=== PATIENT | male | born 1955 | race Caucasian/White ===

== ENCOUNTER 2017-11-24 13:23 | Emergency (ER) | payer OTHER ==
[2017-11-24] MEDS ORDERED: Lidocaine 1% with EPINEPHrine 1:100,000 20 ML MDV INJECT ONE (14:12)
--- NOTE | 2017-11-24 14:13 | EDM.PDOC ---
ED HPI GENERAL MEDICAL PROBLEM - General Chief Complaint: Lower Extremity Injury/Pain Stated Complaint: FLUID BUILDUP ON BOTH KNEES Time Seen by Provider: 11/24/17 13:39 Source of Information: Reports: Patient History Limitations: Reports: No Limitations - History of Present Illness INITIAL COMMENTS - FREE TEXT/NARRATIVE: The patient is a 61-year-old male with unknown history of bilateral knee arthritis which she states is severe, awaiting knee replacement, who presents with bilateral knee swelling. He works as a drywall mechanic and is fairly active and also has to be on his knees a fair amount at work. Over the past couple of days he's had worsening swelling and fluid collection on both knees. These are also more painful than usual. He takes "anti-inflammatory" medication at home which is helpful and also occasional tramadol. He is able to ambulate but it has significant pain with this. No new injury. Bilateral Knee Pain Score (Numeric/FACES): 4 - Related Data Allergies Allergy/AdvReac Type Severity Reaction Status Date / Time No Known Allergies Allergy Verified 11/24/17 13:33 Home Meds: Home Meds Aspirin 81 mg PO DAILY 11/24/17 [History] Fish Oil/Forrest-3 Fatty Acids [Fish Oil 1,000 MG] 1 each PO DAILY 11/24/17 [ History] Gabapentin [Neurontin] 300 mg PO TID 11/24/17 [History] Gluc 2KCl/Chondr/Melinda Hy/Hy Ac [Glucosamine & Chondroitin Cap] 1 cap PO DAILY [History] Lisinopril 20 mg PO DAILY 11/24/17 [History] Magnesium 250 mg PO DAILY 11/24/17 [History] Meloxicam 15 mg PO DAILY 11/24/17 [History] Metoprolol Succinate [Toprol Xl] 50 mg PO DAILY 11/24/17 [History] Multivitamin. 1 tab PO DAILY 11/24/17 [History] Sildenafil. 0.5 tab PO ASDIRECTED 11/24/17 [History] Past Medical History Cardiovascular History: Reports: Hypertension Musculoskeletal History: Reports: Osteoarthritis Neurological History: Reports: Other (See Below) Other Neuro History: pinched neve in spine Social & Family History - Tobacco Use Smoking Status *Q: Former Smoker Used Tobacco, but Quit: No - Recreational Drug Use Recreational Drug Use: No Review of Systems - Review of Systems Review Of Systems: See Below Constitutional: Denies: Fever Respiratory: Reports: No Symptoms Cardiovascular: Reports: No Symptoms GI/Abdominal: Reports: No Symptoms Musculoskeletal: Reports: Joint Pain, Joint Swelling Skin: Denies: Erythema, Wound ED EXAM, GENERAL - Physical Exam Exam: See Below Exam Limited By: No Limitations General Appearance: Alert, WD/WN, No Apparent Distress Eye Exam: Bilateral Eye: Normal Inspection Ears: Normal External Exam Nose: Normal Inspection, Normal Mucosa, No Blood Throat/Mouth: Normal Inspection, Normal Oropharynx, Normal Voice, No Airway Compromise Head: Atraumatic, Normocephalic Neck: Normal Inspection, Supple Respiratory/Chest: No Respiratory Distress Extremities: Other (Left knee: Effusion is present. Skin normal. No warmth or erythema. Full range of motion. Diffuse mild tenderness about the knee. Right knee: Effusion is present. Skin normal. No warmth or erythema. Full range of motion. Diffuse mild tenderness about the knee.) ED JOINT ASPIRATION PROCEDURE - Joint Apsiration/Arthrocentesis Site: L knee and R knee Skin prep: Chlorhexidine (Hibiciens) Local anesthesia: Lidocaine: 1% with EPI Local Anesthetic Volume: 2cc, Other (to each knee ) Aspiration needle size: other (22g) Aspirate appearance: serous Aspirate amount in cc's: 70 (70 from L, 50 from R ) Complications: No Course - Vital Signs Last Recorded V/S: Last Vital Signs Temp 37.0 C 11/24/17 13:33 Pulse 61 11/24/17 13:33 Resp 16 11/24/17 13:33 BP Pulse Ox 99 11/24/17 13:33 - Orders/Labs/Meds Orders: Active Orders 24 hr Category Date Time Status CELL COUNT,BODY FLUID [BF] Stat Lab 11/24/17 15:10 Results CELL COUNT,BODY FLUID [BF] Stat Lab 11/24/17 15:10 Results CRYSTALS,BODY FLUID [BF] Stat Lab 11/24/17 15:10 Results CRYSTALS,BODY FLUID [BF] Stat Lab 11/24/17 15:10 Results CULTURE BODY FLUID + SMEAR [RM] Stat Lab 11/24/17 15:03 Ordered CULTURE BODY FLUID + SMEAR [RM] Stat Lab 11/24/17 15:06 Ordered GLUCOSE,BODY FLUID [BF] Stat Lab 11/24/17 15:10 Results GLUCOSE,BODY FLUID [BF] Stat Lab 11/24/17 15:10 Results PROTEIN,BODY FLUID [BF] Stat Lab 11/24/17 15:10 Results PROTEIN,BODY FLUID [BF] Stat Lab 11/24/17 15:10 Results Labs: Laboratory Tests 11/24/17 11/24/17 Range/Units 15:10 15:10 Fluid Type Synovial fluid Synovial fluid Fluid Glucose 77 80 mg/dL Fluid Total Protein 3.9 4.2 gm/dl Meds: Medications Discontinued Medications Generic Name Dose Route Start Last Admin Trade Name Shwetha PRN Reason Stop Dose Admin Lidocaine/Epinephrine 20 ml 11/24/17 14:12 11/24/17 14:29 Xylocaine 1% With Epinephrine 1:100,000 INJECT 11/24/17 14:13 20 ml ONETIME ONE Administration - Re-Assessments/Exams Free Text/Narrative Re-Assessment/Exam: 11/24/17 16:47 Synovial fluid aspirated from each knee, about 70 mL from the left knee and 50 mL from the right knee. It is normal-appearing synovial fluid. It was sent for analysis but given the benign appearance and my very low suspicion for infection or other abnormality we'll discharge the patient with plan for him to follow up with orthopedics either here or in [place]. I will call him if they' re important abnormalities on the fluid analysis. He agreed to this plan. Departure - Departure Time of Disposition: 15:48 Disposition: Home, Self-Care 01 Clinical Impression: Bilateral knee effusions, Arthritis - Discharge Information Instructions: Knee Effusion, [id number] Referrals: PCP,Not In Area [Primary Care Provider] - Forms: ED Department Discharge Additional Instructions: 1. Follow up with orthopedics in about a week. Call [phone] if you'd like to schedule with Dr. Chase here. 2. Alternatively follow up with your orthopedist in [place]. 3. Keep legs elevated when possible. Avoid activity that seems to make pain worse. - My Orders Last 24 Hours: My Active Orders 11/24/17 15:03 CULTURE BODY FLUID + SMEAR [RM] Stat 11/24/17 15:06 CULTURE BODY FLUID + SMEAR [RM] Stat 11/24/17 15:10 CELL COUNT,BODY FLUID [BF] Stat CELL COUNT,BODY FLUID [BF] Stat CRYSTALS,BODY FLUID [BF] Stat CRYSTALS,BODY FLUID [BF] Stat GLUCOSE,BODY FLUID [BF] Stat GLUCOSE,BODY FLUID [BF] Stat PROTEIN,BODY FLUID [BF] Stat PROTEIN,BODY FLUID [BF] Stat - Assessment/Plan Last 24 Hours: My Active Orders 11/24/17 15:03 CULTURE BODY FLUID + SMEAR [RM] Stat 11/24/17 15:06 CULTURE BODY FLUID + SMEAR [RM] Stat 11/24/17 15:10 CELL COUNT,BODY FLUID [BF] Stat CELL COUNT,BODY FLUID [BF] Stat CRYSTALS,BODY FLUID [BF] Stat CRYSTALS,BODY FLUID [BF] Stat GLUCOSE,BODY FLUID [BF] Stat GLUCOSE,BODY FLUID [BF] Stat PROTEIN,BODY FLUID [BF] Stat PROTEIN,BODY FLUID [BF] Stat
== END 2017-11-24 15:15 | disposition home or self-care (01) ==
LOC: JD.ED 13:23
DX: M17.0 Bilateral primary osteoarthritis of knee (principal); I10 Essential (primary) hypertension; Z79.82 Long term (current) use of aspirin; Z79.899 Other long term (current) drug therapy; Z87.891 Personal history of nicotine dependence
CPT/HCPCS: 20610; 82945; 84157; 87070; 87205; 89050; 89060; 99282-25; 99283-25